=== PATIENT | female | born 1965 | race African-American/Black ===

== ENCOUNTER 2024-07-20 18:03 | Inpatient (IN) | payer MEDICARE, MEDICAID ==
[~2024-07-20 18:03] MED LIST: Communication Order-Pharmacy FS SCH
[2024-07-20] MEDS ORDERED: Acetaminophen 650 MG/20.3 ML UDCUP ONE (18:24)
[2024-07-20 18:28] LABS: #Basophils Less than 0.03 10x3/uL (0.0-0.2); #Eosinphils Less than 0.03 10x3/uL (0.0-0.7); %Basophils 0.1 % (0.0-1.0); %Eosinophils 0.2 % (0.0-10.0); %Lymphocytes 16.5 % (21.0-51.0); %Monocytes 9.1 % (0.0-10.0); %Neutrophils 73.4 % (42.0-75.0); Hematocrit 30.2 % (36.0-47.0); Hemoglobin 9.8 g/dL (12.0-16.0); Mean Corpuscular HGB CONC 32.5 g/dL (32.0-36.0); Mean Corpuscular Hemoglobin 29.9 pg (27.0-31.0); Mean Corpuscular Volume 92.1 fL (78.0-98.0); Mean Platelet Volume 11.4 fL (7.4-10.4); Platelet Count 228 10x3/uL (130-400); RBC Distribution Width 14.1 % (11.5-14.5); Red Blood Cell (RBC) Count 3.28 mill/uL (4.20-5.40)
[2024-07-20] MEDS ORDERED: Acetaminophen 325 MG TAB PO PRN (18:40)
[2024-07-20] MEDS ORDERED: Bisacodyl 10 MG SUPP PR PRN (18:40)
[2024-07-20 18:41] LABS: ALT (SGPT) 6 U/L (8-55); AST (SGOT) 17 U/L (5-34); Albumin 2.6 g/dL (3.5-5.0); Alkaline Phosphatase 66 U/L (40-110); Anion Gap 16 mmol/L (10-20); BUN (Urea Nitrogen) 28 mg/dL (9.8-20.1); Bilirubin, Total 0.2 mg/dL (0.2-1.2); Calc. Creatinine Clearance 0 mL/min (70-130); Calcium 9.3 mg/dL (7.8-10.44); Carbon Dioxide 23 mmol/L (22-29); Chloride 101 mmol/L (98-107); Estimated GFR 41; Globulin 4.3 g/dL (2.4-3.5); Glucose 262 mg/dL (70-105); Potassium 4.2 mmol/L (3.5-5.1); Protein, Total 6.9 g/dL (6.0-8.3); Sodium 136 mmol/L (136-145)
[2024-07-20] MEDS ORDERED: Dextrose 5% in Water 1,000 ML IV PRN (19:29)
[2024-07-20] MEDS ORDERED: Glucagon 1 MG/ML KIT IM PRN (19:29)
[2024-07-20] MEDS ORDERED: Dextrose 50% Abboject 50 ML SYRINGE SLOW IVP PRN (19:29)
[2024-07-20 19:59] LABS: Bilirubin Negative (Negative); Blood, Urine 1+ (Negative); CAUTI Indications for Culture Fever or rigors; Clarity Clear (Clear); Glucose, Urine (Dipstick) Greater than 1000 mg/dL (Negative); Ketone, Urine Negative (Negative); Leukocyte 75 Leu/uL (Negative); Nitrite Negative (Negative); Protein, Urine (Dipstick) 30 mg/dL (Neg-Trace); Specific Gravity, Urine 1.042 (1.002-1.036); Squamous Epithelial 0-3 HPF (0-3); Urobilinogen Normal mg/dL (Less than 2)
[2024-07-20 20:10] LABS: Bacteria/HPF 2+ HPF (None Seen)
[2024-07-20 20:18] LABS: Urine Culture Reflex No No
[2024-07-20] MEDS: Sodium Chloride 0.9% 1,000 ML IV SCH (21:35)
[2024-07-20] MEDS: cefTRIAXone\\ROCEPHIN 1 GM in Sodium Chloride 0.9% 100 ML IVPB SCH (21:35)
[2024-07-20] MEDS: Rosuvastatin 20 MG TAB PO SCH (21:35)
[2024-07-20] MEDS ORDERED: Cefepime 2 GM in Sodium Chloride 0.9% 100 ML IVPB SCH (22:00)
[2024-07-20 22:52] LABS: Influenza A by NAA Not Detected (NotDetected); Influenza B by NAA Not Detected (NotDetected); RSV by NAA Not Detected (NotDetected); SARS-CoV-2 NAA Rapid Test DETECTED (NotDetected)
[2024-07-21] MEDS: hydrALAZINE 20 MG/ML VIAL SLOW IVP PRN (02:55)
[2024-07-21] MEDS: Divalproex Sodium 500 MG ER.TAB PO SCH (09:13)
[2024-07-21] MEDS: Pantoprazole 40 MG VIAL IVP SCH (09:14)
[2024-07-21] MEDS: Labetalol HCl 100 MG/20 ML VIAL SLOW IVP PRN (12:06)
[2024-07-21] MEDS: niCARdipine 25 MG in Sodium Chloride 0.9% 250 ML 250 ML IVPB PRN (15:06)
[2024-07-21] MEDS: metFORMIN 500 MG TAB PO SCH (17:45)
[2024-07-21] MEDS: Metoprolol Tartrate 25 MG TAB PO SCH ×2 (17:45→20:39)
[2024-07-21] MEDS: Gabapentin 100 MG CAP PO SCH (20:39)
[2024-07-21] MEDS: Divalproex Sodium DR 500 MG TAB PO SCH (20:39)
[2024-07-21] MEDS: NIRMATRELVIR 150 MG/RITONAVIR 100 MG (RENAL) TAB PO SCH (20:40)
[2024-07-21] MEDS: Insulin Lispro 100 UNIT/ML 10 ML VIAL SC PRN (20:59)
[2024-07-22] MEDS: Insulin Glargine 30 UNITS/0.3 ML VIAL SC SCH (08:53)
[2024-07-22] MEDS: Hydrochlorothiazide 25 MG TAB PO SCH (08:54)
[2024-07-22] MEDS: Insulin Lispro 100 UNIT/ML 10 ML VIAL SC PRN (08:54)
[2024-07-22] MEDS: Pantoprazole DR 40 MG TAB PO SCH (08:54)
[2024-07-22 09:46] LABS: #Basophils Less than 0.03 10x3/uL (0.0-0.2); %Basophils 0.1 % (0.0-1.0); %Eosinophils 1.2 % (0.0-10.0); %Monocytes 9.8 % (0.0-10.0); %Neutrophils 63.5 % (42.0-75.0); Hematocrit 30.9 % (36.0-47.0); Mean Corpuscular HGB CONC 32.4 g/dL (32.0-36.0); Mean Corpuscular Hemoglobin 29.4 pg (27.0-31.0); Mean Corpuscular Volume 90.9 fL (78.0-98.0); Mean Platelet Volume 11.7 fL (7.4-10.4); Platelet Count 190 10x3/uL (130-400)
[2024-07-22 10:53] LABS: Anion Gap 12 mmol/L (10-20); BUN (Urea Nitrogen) 15 mg/dL (9.8-20.1); Calc. Creatinine Clearance 63 mL/min (70-130); Calcium 9.1 mg/dL (7.8-10.44); Carbon Dioxide 22 mmol/L (22-29); Chloride 107 mmol/L (98-107); Estimated GFR 70; Glucose 192 mg/dL (70-105); Potassium 4.2 mmol/L (3.5-5.1); Sodium 137 mmol/L (136-145)
[2024-07-22] MEDS ORDERED: Amlodipine 5 MG TAB PO SCH (12:15)
[2024-07-22] MEDS: Amlodipine 5 MG TAB PO SCH (12:23)
[2024-07-22] MEDS: Aspirin 81 mg Enteric Coated Tablet PO SCH (12:24)
[2024-07-22] MEDS: Atorvastatin Calcium 40 MG TAB PO SCH ×2 (12:24→20:47)
[2024-07-23] MEDS: Aspirin 81 mg Enteric Coated Tablet PO SCH (10:16)
[2024-07-23] MEDS: Amlodipine 5 MG TAB PO SCH (10:18)
[2024-07-23] MEDS: Losartan 25 MG TAB PO SCH (14:25)
[2024-07-23 17:55] LABS: Hemoglobin A1c 8.3 % (4.0-6.0)
[2024-07-23 18:01] LABS: Cardiac Risk 3.8 (Less than 4.5)
[2024-07-24 06:53] VITALS: BMI 23.3
[2024-07-24] MEDS: Losartan 25 MG TAB PO SCH (08:40)
[2024-07-24 14:02] VITALS: BP 131/75; TEMP 97.6
== END 2024-07-24 15:19 | DRG 871 ==
LOC: ERS 18:03 → EEVIPCON 18:45 → CCU 18:45 → 2SE 07-22 14:03
PROVIDERS: ADMIT Internal Medicine; ATTEND Internal Medicine
PROC: 3E03329 Introduction of Other Anti-infective into Peripheral Vein, Percutaneous Approach (ICD-10-PCS; 2024-07-20)
PROC: XW033F5 Introduction of Other New Technology Therapeutic Substance into Peripheral Vein, Percutaneous Approach, New Technology Group 5 (ICD-10-PCS; 2024-07-21)
PROC: 4A00X4Z Measurement of Central Nervous Electrical Activity, External Approach (ICD-10-PCS; principal; 2024-07-23)
DX: A41.89 Other specified sepsis (principal); G93.41 Metabolic encephalopathy; U07.1 COVID-19; G45.9 Transient cerebral ischemic attack, unspecified; N17.9 Acute kidney failure, unspecified; N30.00 Acute cystitis without hematuria; R65.20 Severe sepsis without septic shock; E11.9 Type 2 diabetes mellitus without complications; I10 Essential (primary) hypertension; Z86.73 Personal history of transient ischemic attack (TIA), and cerebral infarction without residual deficits; G40.909 Epilepsy, unspecified, not intractable, without status epilepticus; K21.9 Gastro-esophageal reflux disease without esophagitis; Z79.84 Long term (current) use of oral hypoglycemic drugs; Z79.899 Other long term (current) drug therapy; Z92.82 Status post administration of tPA (rtPA) in a different facility within the last 24 hours prior to admission to current facility
CPT/HCPCS: 0241U; 36415; 36416; 70450; 70551; 80048; 80061; 83036; 83605; 84443; 85025; 87077; 87086; 87149; J0360; J0696; J1815; J2470; J7030; J7050; J8499